=== PATIENT | female | born 1940 | race Caucasian/White ===

== ENCOUNTER 2020-01-12 06:00 | Day surgery (SDC) | payer OTHER ==
[~2020-01-12 06:00] MED LIST: COZAAR100 MG PO; MAGNESIU PO; NAPR500T14 PO; VITAMIN C PO; VITAMIN D3 PO
[2020-01-12] MEDS ORDERED: LEVAQUIN500 MG PO (10:31)
[2020-01-12] MEDS ORDERED: PERCOCET 5-3251 EACH PO (10:31)
== END 2020-01-12 15:57 | disposition home or self-care (01) ==
LOC: CIR.AMB 06:00
PROVIDERS: ATTEND Obstetrics & Gynecology Gynecology
DX: N81.11 Cystocele, midline (principal); Z20.828 Contact with and (suspected) exposure to other viral communicable diseases